=== PATIENT | female | born 1950 | race Caucasian/White ===

== ENCOUNTER 2020-04-26 06:57 | Emergency (ER) | payer MEDICAID ==
[~2020-04-26] VITALS: Ht 165.1 cm; Wt 90.9 kg
[~2020-04-26 06:57] MED LIST: ASPI-1111 PO; ATOR10TA84 PO; INSLAN SQ; LOSA25TA21 PO; METF-961 PO; METO25 PO; TICA90TA PO; VITA400T9 PO
[2020-04-26 08:04] LABS: GLUCOSE,POINT OF CARE 403 MG/DL (70-110)
[2020-04-26 09:42] VITALS: BP 186/97
[2020-04-26] MEDS ORDERED: KETOROLAC TROMETHAMINE 30 MG/ML VIAL IM ONE (09:45)
== END 2020-04-26 10:05 | disposition home or self-care (01) ==
LOC: EMS 06:57
DX: S40.011A Contusion of right shoulder, initial encounter (principal); S00.93XA Contusion of unspecified part of head, initial encounter; M54.2 Cervicalgia; E11.9 Type 2 diabetes mellitus without complications; E78.00 Pure hypercholesterolemia, unspecified; I10 Essential (primary) hypertension; I25.2 Old myocardial infarction; Z88.8 Allergy status to other drugs, medicaments and biological substances; Z79.4 Long term (current) use of insulin; W06.XXXA Fall from bed, initial encounter; Y93.89 Activity, other specified; Y92.89 Other specified places as the place of occurrence of the external cause; Y99.8 Other external cause status
CPT/HCPCS: 70450; 71045; 72125; 73030; 82962; 96372; 99285; J1885